=== PATIENT | male | born 1995 | race African-American/Black ===

== ENCOUNTER 2022-07-19 15:54 | Emergency (ER) | payer BC ==
[~2022-07-19] VITALS: Ht 193 cm; Wt 90.7 kg
[2022-07-19] MEDS ORDERED: ACETAMINOPHEN ES 500 MG TABLET PO ONE (17:00)
[2022-07-19] MEDS ORDERED: ACETAMINOPHEN ES 500 MG TABLET ONE (17:03)
--- NOTE | 2022-07-19 17:30 | NUR ---
SWABED FOR COVID SENT TO LAB
[2022-07-19 17:40] VITALS: BP 121/64
== END 2022-07-19 17:40 | disposition home or self-care (01) ==
LOC: ER 16:00
DX: B34.9 Viral infection, unspecified (principal); Z20.822 Contact with and (suspected) exposure to COVID-19
CPT/HCPCS: 99283; 87426; 87804; C9803